=== PATIENT | female | born 1970 | race Caucasian/White ===

== ENCOUNTER 2021-11-04 08:57 | Emergency (ER) | payer MEDICAID ==
[~2021-11-04] VITALS: Ht 142.2 cm; Wt 91.0 kg
[2021-11-04 09:09] VITALS: BP 115/70
[2021-11-04 12:25] LABS: BASOPHILS % 0.7 % (0.0-2.0); EOSINOPHILS % 1.5 % (0.0-5.0); HEMATOCRIT. 41.6 % (36.0-48.0); HEMOGLOBIN. 14.4 g/dL (12.0-16.0); LYMPHOCYTES % 24.3 % (20.0-50.0); MEAN CORPUSCULAR HEMOGLOBIN 32.6 pg (28.0-32.0); MEAN CORPUSCULAR VOLUME 94.3 fL (81.0-99.0); MEAN PLATELET VOLUME 7.9 fl (7.4-10.4); MONOCYTES % 12.3 % (2.0-8.0); NEUTROPHILS % 61.2 % (40.0-76.0); PLATELET 225 x1000/uL (130-400); RED BLOOD CELL COUNT 4.41 mill/uL (4.2-5.4); RED CELL DISTRIBUTION WIDTH 14.9 % (11.6-14.6)
[2021-11-04 12:30] LABS: CHLORIDE 103 mEq/L (98-107)
[2021-11-04 12:43] LABS: B-HCG QUANTITATIVE < 1 mIU/mL (<3)
[2021-11-04 14:28] LABS: CLARITY URINE CLOUDY (CLEAR); COLOR URINE YELLOW (YELLOW); KETONES URINE TRACE (NEGATIVE); LEUKOCYTE ESTERASE URINE NEGATIVE (NEGATIVE); NITRITE URINE NEGATIVE (NEGATIVE); OCCULT BLOOD URINE NEGATIVE (NEGATIVE); PH URINE 5.5 (4.5-8.0); PROTEIN URINE TRACE (NEGATIVE)
== END 2021-11-04 15:05 | disposition home or self-care (01) ==
LOC: ER 09:03
DX: G89.29 Other chronic pain (principal); R10.32 Left lower quadrant pain; E11.9 Type 2 diabetes mellitus without complications; Z98.890 Other specified postprocedural states; Z87.19 Personal history of other diseases of the digestive system
CPT/HCPCS: 36415; 74176; 80053; 81003; 84702; 85025; 99284

== ENCOUNTER 2023-03-13 10:56 | Emergency (ER) | payer MEDICAID ==
[~2023-03-13] VITALS: Ht 142.2 cm; Wt 76.0 kg
[2023-03-13 11:08] VITALS: BP 110/46; O2SAT 99
[2023-03-13] MEDS ORDERED: KETOROLAC 60MG/2ML VIAL IM STA (13:43)
[2023-03-13] MEDS ORDERED: TRAM50TA3 MT (13:47)
[2023-03-13] MEDS ORDERED: NAPR-681 PO (13:47)
[2023-03-13 14:52] VITALS: PULSE 82; RESP 14; TEMP 97.5
== END 2023-03-13 14:10 | disposition home or self-care (01) ==
LOC: ER 11:41
DX: M17.12 Unilateral primary osteoarthritis, left knee (principal); E11.9 Type 2 diabetes mellitus without complications; Z98.890 Other specified postprocedural states
CPT/HCPCS: 73562; 99283; J1885; Z7610